=== PATIENT | female | born 2005 | race Caucasian/White ===

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

== ENCOUNTER → 2024-02-27 14:53 | Outpatient (CLI) | payer BC, SELFPAY ==
--- NOTE | 2024-02-27 14:54 | DI.US.S_ITS ---
PROCEDURE: US PELVIC COMPLETE INDICATIONS: Irregular menstruation, unspecified TECHNIQUE: Real-time scanning was performed of the pelvic organs, with image documentation. Additional endovaginal scanning was necessary due to incomplete visualization of the adnexal and endometrial structures by transabdominal scanning. COMPARISON: None. FINDINGS: Uterus: Uterus is anteverted and normal in size at 6.6 x 3.4 x 4.8 cm. The myometrium is homogeneous. The endometrium measures 11.0 mm combined thickness. No fibroids. Ovaries: The right ovary measures 2.8 x 3.1 x 3.1 cm, with a calculated ovarian volume of 13.9 cc. The left ovary measures 3.1 x 2.4 x 2.2 cm, with a calculated ovarian volume of 8.9 cc. The ovaries have a normal sonographic appearance. Greater than 12 follicles can be seen in each ovary. No adnexal masses are seen. Other: No pathologic free abdominal or pelvic fluid. IMPRESSION: There are greater than 12 follicles in both ovaries. In most individuals, this is a normal finding. However, in patients with hirsutism, this can correlate with a clinical diagnosis of polycystic ovary syndrome. Recommend clinical correlation. We strive to produce accurate, complete, and clear reports of imaging services. To assist us in improving patient care, this report was composed using standard report templates and voice recognition software. Therefore, it may contain abnormal punctuation, insertions and/or omissions. Occasional wrong-word or sound-alike substitutions may occur. Though we review the report and make efforts to correct it, we do recommend that the report be read carefully in proper context to recognize any text inaccuracies. Dictated by: Steve Morris M.D. on 02/28/2024 at 14:57 Approved by: Steve Morris M.D. on 02/28/2024 at 14:59
== END ==
PROVIDERS: PCP Family Medicine; Referring Provider Family Medicine; Visit Provider Family Medicine
DX: N92.6 Irregular menstruation, unspecified (principal)
CPT/HCPCS: 76830; 76856

== ENCOUNTER 2024-04-19 10:57 | Emergency (ER) | payer BC, SELFPAY ==
[2024-04-19 11:10] VITALS: BP 140/77; PULSE 99; RESP 18; TEMP 37.1; O2SAT 99
--- NOTE | 2024-04-19 11:32 | PC.NURSE ---
Patient was given paper clothes to wear and the patients shirt,sweat shirt, pants, socks, tennis shoes, phone, chapstick, and english headphones were put into labeled patient belonging bags and placed in the locked cabinet behind the nurses station.
--- NOTE | 2024-04-19 11:52 | ED_ITS ---
HPI - Psych General Chief Complaint: Psychiatric Symptoms Stated Complaint: mental health,SI Time Seen by Provider: 04/19/24 11:10 Source: patient Mode of arrival: Ambulatory History of Present Illness HPI Narrative: Patient is a 18-year-old female. She states that sometimes she goes by the name ?Jhoan? she does identify as transgender although family is not aware of this. Does have history of mental health disorders to include ADHD, anxiety depression, PTSD. She was also recently diagnosed with PCOS. She does see a mental health provider. She states she was supposed to be on medications but has not been on them for the past several months. This is secondary to the family being ?busy? and unable to order picker the medicines and also purchase the medications. She had a scheduled appointment with her psychiatrist this morning. She was late to this visit. According to the psychiatrist patient was expressing suicidal ideation and was ?inconsolable? in the room. Here in the ER the patient is calm. Does express thoughts of wanting to hurt herself. Did scratch her left arm last evening. She did state that she was hoping that the ?pain I was in would just kill me? while she was asleep. Patient has been admitted to the hospital in the past for mental health disorders. She also states that other times that she has been seen she was able to ?safety plan? but currently does not feel like she can do this. Related Data Previous Rx's Medication Instructions Recorded dextroamphetamine-amphetamine ER 5 5 mg PO QAM ADHD #30 caps 03/07/24 mg 24hr capsule,extend release (Adderall XR) metformin 500 mg tablet,extended 500 mg PO QPM #90 tabs 04/06/24 release 24 hr Allergies Allergy/AdvReac Type Severity Reaction Status Date / Time cephelexin AdvReac Mild chest Uncoded 04/06/24 14:11 tightness Review of Systems Review of Systems ROS Unobtainable: All systems reviewed & are unremarkable except as noted in HPI and below Patient History Medical History PCOS (polycystic ovarian syndrome) Pre-diabetes Amenorrhea Social History Smoking Status: Never smoker Smoking Status: Never smoker alcohol intake frequency: holidays/special occasions only Substance Use Type: does not use Exam Initial Vital Signs Initial Vital Signs: Vital Signs Temperature 98.8 F 04/19/24 11:10 Pulse Rate 99 H 04/19/24 11:10 Respiratory Rate 18 04/19/24 11:10 Blood Pressure 140/77 04/19/24 11:10 Pulse Oximetry 99 04/19/24 11:10 Oxygen Delivery Method Room Air 04/19/24 11:10 HENMT Head: normal to inspection and normocephalic Resp Effort & Inspection: normal respiratory effort Auscultation: clear to auscultation bilaterally Cardio Rate: regular rate Rhythm: regular rhythm GI Inspection: normal to inspection and non-distended Skin Other: Multiple Superficial skin scratches to the left forearm Neuro General: patient alert, patient awake and patient oriented x3 Psych Other: Patient is calm. He was cooperative. Not homicidal. Would not specifically denies suicidal ideation. Was tearful in the room. Course Orders Ordered: ED Orders 04/19/24 11:10 Consult to DIMENSION SPECIFICATION INSPECTOR - Ct Scan Special Procedures Technologist Stat 04/19/24 12:05 Complete Blood Count AUTO DIFF Stat Comprehensive Metabolic Panel Stat Ethanol (ETOH) Stat Lipase Stat Thyroid Stimulating Hormone Stat 04/19/24 12:14 COVID19 -Nasal RAPID Stat 04/19/24 12:45 Test Urine Stat Urinalysis and Microscopic Stat Urine Drug Screen, Rapid Stat Vital Signs Vital signs: Vital Signs - 8 hr 04/19/24 11:10 Temperature 98.8 F Pulse Rate 99 H Respiratory Rate 18 Blood Pressure 140/77 Pulse Oximetry 99 Oxygen Delivery Method Room Air MDM - Psych Lab Data 04/19/24 12:05 04/19/24 12:05 Labs: Lab Results 04/19/24 04/19/24 04/19/24 Range/Units 12:05 12:14 12:45 WBC 6.1 (4.5-11.0) X10^3/uL RBC 4.56 (4.0-5.2) X10^6/uL Hgb 13.9 (12.0-16.0) g/dL Hct 40.4 (36-46) % MCV 88.5 (80-100) fL MCH 30.6 (26-34) PG MCHC 34.5 (30-36) % RDW 13.0 (11.6-14.8) % Plt Count 243 (150-400) X10^3/uL Neut % (Auto) 62.2 (50-75) % Lymph % (Auto) 29.2 (25-40) % [place] % (Auto) 6.7 (3-14) % Eos % (Auto) 1.4 L (2-4) % Baso % (Auto) 0.5 (0-2) % Neut # (Auto) 3800 (8848-3249) /uL Lymph # (Auto) 1800 (6122-8784) /uL [place] # (Auto) 400 (0-900) /uL Eos # (Auto) 100 (0-450) /uL Baso # (Auto) 0 (0-100) /uL Sodium 138 (137-145) mmol/L Potassium 4.0 (3.4-5.1) mmol/L Chloride 105 (98-107) mmol/L Carbon Dioxide 25 (22-32) mmol/L BUN 7 (7-17) mg/dL Creatinine 0.59 (0.52-1.04) mg/dL Estimated GFR > 60 (>60) mL/min BUN/Creatinine Ratio 11.9 (6-22) Glucose 124 H (70-100) mg/dL Calcium 9.0 (8.4-10.2) mg/dL Total Bilirubin 0.5 (0.2-1.3) mg/dL AST 30 (14-36) IU/L ALT 47 H (<35) IU/L Alkaline Phosphatase 36 L (38-126) U/L Total Protein 7.6 (6.3-8.2) g/dL Albumin 4.4 (3.5-5.0) g/dL Globulin 3.2 (1.7-4.1) g/dL Albumin/Globulin Ratio 1.4 (1.0-2.8) Lipase 133 (23-300) U/L TSH 1.76 (0.47-4.68) uIU/mL Urine Color Yellow Urine Appearance Clear Urine pH 5.5 (4.5-8.0) Ur Specific [place] 1.015 (1.000-1.035) Urine Protein Negative (Negative) Urine Glucose (UA) Negative (Negative) g/dL Urine Ketones Negative (NEGATIVE) Urine Occult Blood Negative (Negative) Urine Nitrate Negative (Negative) Urine Bilirubin Negative (NEGATIVE) Urine Urobilinogen 0.2 (0.2) E.U./dL Ur Leukocyte Esterase Trace H (NEGATIVE) Urine RBC 0-1/hpf (0-5/HPF) Urine WBC 1-5/hpf (0-5/HPF) Ur Squamous Epith Cells 1-5 /hpf (0-5/HPF) Urine Bacteria Few (2-10) H (None) Hyaline Casts 1-5/lpf (None) Ur Culture Indicated? Cult not indicated Vol Urine Centrifuged 10ml (spun) Urine Test Negative (Negative) U Opiates 300ng/mL cut Negative (Negative) Ur Oxycodone Screen Negative (Negative) Urine Methadone Screen Negative (Negative) Ur Barbiturates Screen Negative (Negative) U Tricyclic Antidepress Negative (Negative) Ur Phencyclidine Scrn Negative (Negative) Ur Amphetamines Screen Negative (Negative) U Methamphetamines Scrn Negative (Negative) Ur MDMA Scrn (Ecstasy) Negative (Negative) U Benzodiazepines Scrn Negative (Negative) Urine Cocaine Screen Negative (Negative) U Marijuana (THC) Screen Negative (Negative) Urine Specific [place] (Normal) Ethyl Alcohol < 10 ( - 10) mg/dL Ur Creatinine (Normal) SARS-CoV-2 (PCR) Negative (Negative) 04/19/24 Range/Units 12:45 WBC (4.5-11.0) X10^3/uL RBC (4.0-5.2) X10^6/uL Hgb (12.0-16.0) g/dL Hct (36-46) % MCV (80-100) fL MCH (26-34) PG MCHC (30-36) % RDW (11.6-14.8) % Plt Count (150-400) X10^3/uL Neut % (Auto) (50-75) % Lymph % (Auto) (25-40) % [place] % (Auto) (3-14) % Eos % (Auto) (2-4) % Baso % (Auto) (0-2) % Neut # (Auto) (6670-9560) /uL Lymph # (Auto) (8783-1856) /uL [place] # (Auto) (0-900) /uL Eos # (Auto) (0-450) /uL Baso # (Auto) (0-100) /uL Sodium (137-145) mmol/L Potassium (3.4-5.1) mmol/L Chloride (98-107) mmol/L Carbon Dioxide (22-32) mmol/L BUN (7-17) mg/dL Creatinine (0.52-1.04) mg/dL Estimated GFR (>60) mL/min BUN/Creatinine Ratio (6-22) Glucose (70-100) mg/dL Calcium (8.4-10.2) mg/dL Total Bilirubin (0.2-1.3) mg/dL AST (14-36) IU/L ALT (<35) IU/L Alkaline Phosphatase (38-126) U/L Total Protein (6.3-8.2) g/dL Albumin (3.5-5.0) g/dL Globulin (1.7-4.1) g/dL Albumin/Globulin Ratio (1.0-2.8) Lipase (23-300) U/L TSH (0.47-4.68) uIU/mL Urine Color Urine Appearance Urine pH Normal (4.5-8.0) Ur Specific [place] (1.000-1.035) Urine Protein (Negative) Urine Glucose (UA) (Negative) g/dL Urine Ketones (NEGATIVE) Urine Occult Blood (Negative) Urine Nitrate (Negative) Urine Bilirubin (NEGATIVE) Urine Urobilinogen (0.2) E.U./dL Ur Leukocyte Esterase (NEGATIVE) Urine RBC (0-5/HPF) Urine WBC (0-5/HPF) Ur Squamous Epith Cells (0-5/HPF) Urine Bacteria (None) Hyaline Casts (None) Ur Culture Indicated? Vol Urine Centrifuged Urine Test (Negative) U Opiates 300ng/mL cut (Negative) Ur Oxycodone Screen (Negative) Urine Methadone Screen (Negative) Ur Barbiturates Screen (Negative) U Tricyclic Antidepress (Negative) Ur Phencyclidine Scrn (Negative) Ur Amphetamines Screen (Negative) U Methamphetamines Scrn (Negative) Ur MDMA Scrn (Ecstasy) (Negative) U Benzodiazepines Scrn (Negative) Urine Cocaine Screen (Negative) U Marijuana (THC) Screen (Negative) Urine Specific [place] Normal (Normal) Ethyl Alcohol ( - 10) mg/dL Ur Creatinine Normal (Normal) SARS-CoV-2 (PCR) (Negative) MDM Narrative Medical decision making narrative: Patient was medically cleared. Social work has been consulted. Will attempt to find placement. Patient has been accepted to [facility]. She was voluntary. Patient was stable for transport. Discharge Plan Departure Patient Disposition: Xfer Psychiatric Hosp Clinical Impression: Suicidal thoughts, Abrasion of skin Prescriptions: No Action metformin 500 mg tablet extended release 24 hr 500 mg PO QPM Qty: 90 2RF dextroamphetamine-amphetamine [Adderall XR] 5 mg capsule,extended release 24hr 5 mg PO QAM Qty: 30 0RF Rx Instructions: New Medication Referrals: Linh Jones MD [Primary Care Provider] -
[2024-04-19 12:15] LABS: Add Manual Diff / Slide Review NO; Basophils Absolute Auto 0 /uL (0-100); Basophils Percent Auto 0.5 % (0-2); Eosinophils Absolute Auto 100 /uL (0-450); Eosinophils Percent Auto 1.4 % (2-4); Hematocrit 40.4 % (36-46); Hemoglobin 13.9 g/dL (12.0-16.0); Lymphocytes Absolute Auto 1800 /uL (1100-4500); Lymphocytes Percent Auto 29.2 % (25-40); Mean Corpuscular HGB Conc 34.5 % (30-36); Mean Corpuscular Hemoglobin 30.6 PG (26-34); Mean Corpuscular Volume 88.5 fL (80-100); Monocytes Absolute Auto 400 /uL (0-900); Monocytes Percent Auto 6.7 % (3-14); Neutrophils Absolute Auto 3800 /uL (1500-7000); Neutrophils Percent Auto 62.2 % (50-75); Platelet Count 243 X10^3/uL (150-400); Red Blood Cell Count 4.56 X10^6/uL (4.0-5.2); White Blood Cell Count 6.1 X10^3/uL (4.5-11.0)
[2024-04-19 12:29] LABS: Alanine Aminotransferase 47 IU/L (<35); Albumin 4.4 g/dL (3.5-5.0); Albumin Globulin Ratio 1.4 (1.0-2.8); Alkaline Phosphatase 36 U/L (38-126); Aspartate Aminotransferase 30 IU/L (14-36); BUN Creatinine Ratio 11.9 (6-22); Bilirubin Total 0.5 mg/dL (0.2-1.3); Blood Urea Nitrogen 7 mg/dL (7-17); Carbon Dioxide 25 mmol/L (22-32); Chloride 105 mmol/L (98-107); Estimated Glomerular Filt Rate > 60 mL/min (>60); Ethanol (ETOH) < 10 mg/dL; Globulin 3.2 g/dL (1.7-4.1); Glucose 124 mg/dL (70-100); HEMOLYSIS < 15 (0-50); Lipase 133 U/L (23-300); Sodium 138 mmol/L (137-145); Total Protein 7.6 g/dL (6.3-8.2)
[2024-04-19 13:05] LABS: Thyroid Stimulating Hormone 1.76 uIU/mL (0.47-4.68)
[2024-04-19 13:12] LABS: Appearance Urine UA CLEAR; Bilirubin Urine UA NEGATIVE (NEGATIVE); Color Urine UA YELLOW; Glucose Urine UA NEGATIVE (Negative); Ketones Urine UA NEGATIVE (NEGATIVE); Leukocyte Esterase Urine UA TRACE (NEGATIVE); Nitrite Urine UA NEGATIVE (Negative); Occult Blood Urine UA NEGATIVE (Negative); Protein Urine UA NEGATIVE (Negative); Specific Gravity Urine UA 1.015 (1.000-1.035); Urobilinogen Urine UA 0.2 E.U./dL (0.2)
[2024-04-19 13:13] LABS: pH Urine UA 5.5 (4.5-8.0)
[2024-04-19 13:14] LABS: Pregnancy Test Urine Negative (Negative); UR Morphine/Opiate cutoff 300 Negative (Negative); Ur Creatinine Normal (Normal); Ur Specific Gravity Normal (Normal); Urine Amphetamines Negative (Negative); Urine Barbiturates Negative (Negative); Urine Benzodiazepines Negative (Negative); Urine Cocaine Negative (Negative); Urine MDMA Negative (Negative); Urine Methadone Negative (Negative); Urine Methamphetamines Negative (Negative); Urine Oxycodone Negative (Negative); Urine Phencyclidine Negative (Negative); Urine Tetrahydrocannabinol Negative (Negative); Urine Tricyclic Antidepressant Negative (Negative); Urine pH Normal (Normal)
[2024-04-19 13:18] LABS: COVID19 -Nasal RAPID Negative (Negative)
[2024-04-19 13:21] LABS: Bacteria Urine Few (2-10); RBC Urine 0-1/HPF (0-5/HPF); Urine Volume 10mL (spun); WBC Urine 1-5/HPF (0-5/HPF)
[2024-04-19 13:22] LABS: Culture Indicated Urine Cult Not Indicated; Hyaline Casts Urine 1-5/LPF; Squamous Epithelial Cell Urine 1-5 /HPF (0-5/HPF)
--- NOTE | 2024-04-19 13:41 | CM.SWNOTE ---
Addendum entered by TJ Huang 04/19/24 13:56: ED SUPER[employer]OR [employer] deployed PHQ9 and GAD7, pt scored with 21 and 18 respectively, indicating severe depression and anxiety. Original Note: ED [employer] Assessment Note: [employer] - Vault Maker Assessment [employer]/Vault Maker Assessment Time Spent with Patient Start date 04/19/24 Visit Start Time 11:10 End date 04/19/24 Visit End Time 11:25 Total time Care Management spent on 15 minutes patient visit-in minutes Mental Health Screening Include Onset, Duration, Intensity Presenting Problem Patient is a biological female who identifies as transgender , prefers to be called Jhoan. Patient presented to the ED following a psychiatric appointment at [facility] with Dr. Rabago. Patient explained they are having suicidal thoughts and have been cutting their arm as recent as yesterday. Patient could not identify a current plan but recognizes that they are a danger to myself. Patient has a hx of a suicide attempt in 2021. Precipitating Event(s) Patient explains increased stress due to the election results as a transgender person. Patient reports they have lost a friend due to the election. Patient also was recently diagnosed with PCOS and states they are in chronic abdominal pain. Patient reports feeling defeated due a job search that has not been successful. Patient stated hopelessness increasing, I wasn't made for this world. I feel like I don't fit in. Patient Strengths Patient is communicative and has good insight. Current Behavioral Health Provider(s) Currently a patient of [facility], Provider, Ph. # [facility]. Patient does not identify any counselors at this time. Psych. Hx Mental Health and Chemical Previous MH dx of ADHD, PTSD. Dependency Pt also has a PCOS dx. Patient is not currently compliant with medications but they have been prescribed Adderral and Metformin. Family Hx of Behavioral Abuse None reported during this assessment. Psychiatric Hospitalizations (date(s)/ No psych hospitalizations in location) the past. Patient presented to the ED in 2021 after a near-suicide attempt but was able to contract for safety and discharged home with [facility] services. Psychosocial information & Support Patient is a 18yo female, Systems identifies as transgender. Pt prefers to be called Jhoan. Patient lives in a house in [place] with their mother, father, sister, grandmother, cat and dog. School/Work Patient does not currently work and graduated from high school this past summer. Legal Concerns Legal Matters - Outstanding Issues None reported. Mental Status Orientation (Person/Place/Time) AOx3 Stated Mood scared Affect (Congruent with Mood?) Labile, tearful, congruent with mood Thought Content - Specify/Describe Patient explains they are very Obsessions, Delusions, Hallucinations paranoid and believe it to be a symptom of their anxiety. They sometimes see bugs on their arms and legs when they know there are no bugs in their environment. Thought Processes (Nmcyfhn-Liqipkmp-Ouxn Logical, coherent Vizstkos-Rsoseefd-Cedljugxtv- Klxsfpbcagxukg-Masutde-Bkzkfqphzbjk- Thought Blocking) Speech (Tgluki-Wpbf-Rxodmnz-Rapid-Soft- Soft, pressured Loud-Pressured) Motor (Ljiafr-Qlkxkrjfm-Bjbf-Other) Normal Insight (Ngfn-Azkt-Dhey/Limited) Good Judgement (Ogpb-Ifcd-Ruqb/Limited) Good Impulse Control (Adequate-Impaired) Impaired Memory (Drpxwjslu-Iobxrr-Bbpypa, Intact Impaired-Intact) Concentration (Intact-Impaired) Intact Attention (Intact-Impaired) Intact Behavior (Appropriate-Inappropriate) Appropriate Additional Comment Patient is calm, cooperative and communicative during assessment. Risk Assessment Suicidal Ideation (Plan) Yes Homicidal Ideation (Plan) No Comment Patient states they are suicidal and feel they are a danger to themselves. Patient explains they do not have a plan currently but due to their PCOS dx, they are hopeful they could just in my sleep. Patient reports a history of an attempt in 2021 when they tried to go to the [employer]ura and hang themselves with their belt after bullying due to sexual orientation. Intervention Intervention Reviewed chart and discussed pt with ED staff. ED SUPER[employer] met with pt during ED triage with ED RN. Pt reports suicidal ideation and not feeling in control of their thoughts or actions. Pt explains they have been medication non-compliant because of finances as well as no access to pharmacy. Patient explains he is wanting to receive inpatient behavioral health hospitalization at this time but also stated concerns for the financial aspect due to no job and not sure what is covered under insurance. [employer] discussed medical clearance necessary for transfer, SU[employer] reviews process with patient who remains agreeable to inpatient placement. At this time, it is the opinion of this [employer] that patient would benefit from inpatient psychiatric hospitalization for SI. SU[employer] informs ED provider, Dr. Irvin, who indicates agreement. SU[employer] informs RN Karena. Plan RA Plan Patient has been deemed medically cleared by ED Provider. ED SUPER[employer] will attempt bed search for inpatient placement. TABBY Xavier
--- NOTE | 2024-04-19 16:20 | CM.SWNOTE ---
ED ADMINISTRATIVE SUPPORT SPECIALIST Note: ED ADMINISTRATIVE SUPPORT SPECIALIST initiated bed search for inpatient BH treatment. ADMINISTRATIVE SUPPORT SPECIALIST calls [facility], it was reported that there are it was reported that there are beds available and to send a packet. ED ADMINISTRATIVE SUPPORT SPECIALIST sent a packet for review. ADMINISTRATIVE SUPPORT SPECIALIST calls [facility], it was reported that there are beds available and to send a packet. ED ADMINISTRATIVE SUPPORT SPECIALIST sent a packet for review. [facility] notified this ADMINISTRATIVE SUPPORT SPECIALIST that pt has been accepted for inpatient treatment. Accepting Provider: VIOLETTA Gomez RN-RN#: [phone] ED ADMINISTRATIVE SUPPORT SPECIALIST called [facility] and coordinated transport to [facility] in [place] at [phone] with an arrival at 1930. ED ADMINISTRATIVE SUPPORT SPECIALIST notified ED Provider, Pt RN, SOPHIA, pt and pt family. All verbalized understanding of plan for transfer. Plan: Pt to transfer to [facility] for voluntary inpatient treatment. Pt to transport with [facility] at 1800 with an arrival at 1930. TABBY Xavier
[2024-04-19 17:51] VITALS: BP 134/63; PULSE 109; RESP 20; TEMP 37; O2SAT 96
[2024-04-19 18:01] VITALS: BP 134/63; PULSE 109; RESP 20; TEMP 37; O2SAT 96
== END 2024-04-19 18:04 ==
PROVIDERS: Emergency Provider Emergency Medicine; PCP Family Medicine
DX: R45.851 Suicidal ideations (principal); S40.812A Abrasion of left upper arm, initial encounter; Z11.52 Encounter for screening for COVID-19
CPT/HCPCS: 36415; 80053; 80305; 80320; 81001; 81025; 83690; 84443; 85025; 87635; 99284

== ENCOUNTER → 2025-05-25 16:51 | Outpatient (CLI) | payer BC, SELFPAY | PROVIDERS: Referring Provider Chiropractor; Visit Provider Chiropractor | DX: R30.0 Dysuria (principal); N94.9 Unspecified condition associated with female genital organs and menstrual cycle | CPT/HCPCS: 87086; 87210 ==